=== PATIENT | female | born 1970 | race Caucasian/White ===

== ENCOUNTER 2017-08-30 07:12 | Emergency (ER) | payer OTHER ==
[2017-08-30] MEDS ORDERED: FAMOTIDINE 20 MG/50 ML IVPB 50 ML IVPB ONE ×2 (07:29→07:48)
[2017-08-30 07:30] VITALS: TEMP 97.6; BMI 24.2
[2017-08-30] MEDS ORDERED: MAG HYDROX/AL HYDROX/SIMETH 355 ML ORAL.SUSP PO ONE (07:31)
[2017-08-30] MEDS ORDERED: MAG HYDROX/AL HYDROX/SIMETH 30 ML UNIT-DOSE CUP ONE (07:47)
--- NOTE | 2017-08-30 07:47 | PDOC ---
Attending Attestation - Resident Resident Name: GerryArnulfo - ED Attending Attestation I have performed the following: I have examined & evaluated the patient, The case was reviewed & discussed with the resident, I agree w/resident's findings & plan, Exceptions are as noted - HPI HPI: 08/30/17 07:34 46yo F no hx BIBEMS with syncope. Reports lower abd discomfort similar to when she has to have bowel movement, nausea, and feeling of warmth. She went to the bathroom, had a bowel movement and slumped over on the toilet. Did not fall off the toilet, just leaned back. LOC for less than 1 minute. [place] very hot afterwards but returned to her baseline mental status quickly per her . says he helped her up from the toilet and they came to the ED. Patient also reports dysuria for 2 days. Denies any palpitations, chest pain, shortness of breath, headache, focal weakness or numbness, fevers, chills, dizziness. LMP 1 year ago. - Physicial Exam PE: 08/30/17 07:47 GENERAL: Awake, alert, and fully oriented, in no acute distress HEAD: No signs of trauma EYES: PERRLA, EOMI, sclera anicteric, conjunctiva clear ENT: Auricles normal inspection, hearing grossly normal, nares patent, oropharynx clear without exudates. Moist mucosa NECK: Normal ROM, supple, no lymphadenopathy, JVD, or masses LUNGS: Breath sounds equal, clear to auscultation bilaterally. No wheezes, and no crackles HEART: Regular rate and rhythm, normal S1 and S2, no murmurs, rubs or gallops ABDOMEN: Soft, mild suprapubic ttp, normoactive bowel sounds. No guarding, no rebound. No masses EXTREMITIES: Normal range of motion, no edema. No clubbing or cyanosis. No cords, erythema, or tenderness NEUROLOGICAL: Normal speech, cranial nerves intact, negative pronator drift, 5/ 5 strength in all 4 extremities, normal sensation to light touch in all 4 extremities, normal cerebellar exam, normal gait, normal reflexes and tone SKIN: Warm, Dry, normal turgor, no rashes or lesions noted. - Medical Decision Making 08/30/17 07:50 46-year-old female with no significant past medical history presents with syncopal episode. Also reports dysuria. Vitals and exam are unremarkable. EKG is normal. Given preceding warmth, and nausea, and LOC for less than 1 minute and normal EKG, likely vasovagal syncope, maybe in the setting of UTI or other infection. -labs -CXR -UA -reassess 08/30/17 11:14 UPT negative. Labs unremarkable, except slightly hypokalemic to 3.2 which was repleted PO (Mg normal). Calcium low to 7.7 which patient reports she has been told to take supplementation for before. UA c/f UTI. Will treat with keflex and DC to f/u with PMD. I discussed the physical exam findings, ancillary test results and final diagnoses with the patient. I answered all of the patient's questions. The patient was satisfied with the care received and felt comfortable with the discharge plan and treatment plan. The patient will call their primary care physician within 24 hours to arrange follow-up and will return to the Emergency Department with any new, persistent or worsening symptoms. Heart Score/ECG Review #1 08/30/17 07:50 Twelve-lead EKG was performed and reviewed by me. Normal sinus rhythm, rate 61. Normal axis and intervals. No ST elevations or T-wave inversions.
[2017-08-30] MEDS ORDERED: LOPERAMIDE HCL 2 MG CAPSULE PO ONE (07:55)
[2017-08-30 08:01] LABS: BASOPHIL 1.3 % (0-2.0); EOSINOPHIL 1.7 % (0-4.5); MCH 29.2 pg (25.7-33.7); MCHC 33.9 g/dl (32.0-36.0); MEAN PLT VOLUME 9.3 fl (7.5-11.1); NEUTROPHILS 67.4 % (42.8-82.8); PLATELET COUNT 174 K/MM3 (134-434); RDW 14.2 % (11.6-15.6); WHITE BLOOD COUNT 7.5 K/mm3 (4.0-10.0)
[2017-08-30] MEDS ORDERED: LOPERAMIDE HCL 2 MG CAPSULE ONE (08:20)
[2017-08-30 08:26] LABS: ALBUMIN 3.3 g/dl (3.4-5.0); ANION GAP 9 (8-16); BILIRUBIN,TOTAL 0.3 mg/dL (0.2-1.0); CALCIUM 7.7 mg/dL (8.5-10.1); CO2 26 mmol/L (21-32); CREATININE 0.9 mg/dL (0.55-1.02); SGOT/AST 17 U/L (15-37); SGPT/ALT 20 U/L (12-78); TOT PROT 6.1 g/dl (6.4-8.2)
[2017-08-30 08:27] LABS: ALK PHOS 72 U/L (45-117); CPK 128 IU/L (26-192); GLUCOSE,RANDOM 126 mg/dL (74-106); TROPONIN I < 0.02 ng/ml (0.00-0.05)
--- NOTE | 2017-08-30 08:43 | PDOC ---
History of Present Illness - General Chief Complaint: Syncope/Near Syncope Stated Complaint: SYNCOPE Time Seen by Provider: 08/30/17 07:29 History Source: Patient Exam Limitations: Language Barrier - History of Present Illness Initial Comments: 08/30/17 08:33 Patient is a 46F with no significant medical history here today complaining of syncope after having a bowel movement. She says that she woke up this morning with a strong sensation that she needed to defecate. She had a loose bowel movement without blood then starting feeling hot and weak. Her found her on the toilet upright but with her head held to the side. She is unsure of how long she was out, but says that she was not confused afterwards, only feeling weak. Her denies any sort of convulsions or seizure like activity. She denies chest pain, shortness of breath, and vomiting. She says that she does feel nauseous. EMS was called, and she was given 1L NS and 4mg of zofran in the field. On review of symptoms, she is complaining of burning with urination. LMP was 1 year ago, she believes she is menopausal. Past History - Past Medical History Allergies/Adverse Reactions: Allergies Allergy/AdvReac Type Severity Reaction Status Date / Time No Known Allergies Allergy Verified 08/30/17 07:19 Home Medications: Ambulatory Orders Calcium Carbonate [Calcium] 500 mg PO DAILY 08/30/17 Cephalexin [Keflex] 500 mg PO BID #13 capsule 08/30/17 Other medical history: ARTHRITIS. - Immunization History Immunization Up to Date: Yes - Suicide/Smoking/Psychosocial Hx Smoking Status: No Smoking History: Never smoked Have you smoked in the past 12 months: No Number of Cigarettes Smoked Daily: 0 Cigars Per Day: 0 Hx Alcohol Use: No Drug/Substance Use Hx: No Substance Use Type: None Review of Systems - Review of Systems Comments:: 08/30/17 08:42 GENERAL/CONSTITUTIONAL: Positive for fevers and weakness. Negative for chills HEAD, EYES, EARS, NOSE AND THROAT: No change in vision. No sore throat. CARDIOVASCULAR: No chest pain or shortness of breath RESPIRATORY: No cough, wheezing, or hemoptysis. GASTROINTESTINAL: Positive for nausea and diarrhea. Negative for constipation and vomting. GENITOURINARY: Positive for burning sensation with urination. Negative for frequency. MUSCULOSKELETAL: No joint or muscle swelling or pain. No neck or back pain. SKIN: No rash NEUROLOGIC: No headache, vertigo, loss of consciousness, or change in strength/ sensation. ENDOCRINE: No increased thirst. No abnormal weight change HEMATOLOGIC/LYMPHATIC: No anemia, easy bleeding, or history of blood clots. ALLERGIC/IMMUNOLOGIC: No hives or skin allergy. *Physical Exam - Vital Signs Last Vital Signs Temp Pulse Resp BP Pulse Ox 97.6 F 60 18 119/72 98 08/30/17 07:26 08/30/17 07:26 08/30/17 07:26 08/30/17 07:26 08/30/17 07:26 - Physical Exam Comments: 08/30/17 08:45 GENERAL: Awake, alert, and fully oriented, in no acute distress HEAD: No signs of trauma, normocephalic, atraumatic EYES: PERRLA, EOMI, sclera anicteric, conjunctiva clear ENT: Auricles normal inspection, hearing grossly normal, nares patent, oropharynx clear without exudates. Moist mucosa LUNGS: No distress, speaks full sentences, clear to auscultation bilaterally HEART: Regular rate and rhythm, normal S1 and S2, no murmurs, rubs or gallops, peripheral pulses normal and equal bilaterally. ABDOMEN: Soft, nontender, normoactive bowel sounds. No guarding, no rebound. No masses EXTREMITIES: Normal inspection, Normal range of motion, no edema. No clubbing or cyanosis. NEUROLOGICAL: Cranial nerves II through XII grossly intact. Normal speech, no focal sensorimotor deficits SKIN: Warm, Dry, normal turgor, no rashes or lesions noted. ED Treatment Course - LABORATORY CBC & Chemistry Diagram: 08/30/17 07:42 08/30/17 07:42 - ADDITIONAL ORDERS Additional order review: Laboratory Results 08/30/17 08/30/17 07:42 07:42 Sodium 144 Potassium 3.2 L Chloride 109 H Carbon Dioxide 26 Anion Gap 9 BUN 16 D Creatinine 0.9 Creat Clearance w eGFR > 60 Random Glucose 126 H D Calcium 7.7 L Total Bilirubin 0.3 AST 17 D ALT 20 Alkaline Phosphatase 72 Creatine Kinase 128 Troponin I < 0.02 Total Protein 6.1 L Albumin 3.3 L Lipase 190 08/30/17 07:42 RBC 3.98 MCV 86.0 MCHC 33.9 RDW 14.2 MPV 9.3 Neutrophils % 67.4 Lymphocytes % 21.8 Monocytes % 7.8 Eosinophils % 1.7 Basophils % 1.3 - RADIOLOGY Radiology Studies Ordered: Category Date Time Status CXRPORT [CHEST X-RAY PORTABLE*] [RAD] Stat Radiology 08/30/17 07:41 Ordered - Medications Given in the ED: ED Medications Discontinued Medications Generic Name Dose Route Start Last Admin Trade Name Freq PRN Reason Stop Dose Admin Al Hydroxide/Mg Hydroxide 30 ml 08/30/17 07:31 08/30/17 07:50 Mylanta Suspension - PO 08/30/17 07:32 30 ml ONCE ONE Administration Famotidine/Sodium Chloride 50 mls @ 100 mls/hr 08/30/17 07:29 08/30/17 07:48 Pepcid 20 Mg Premixed Ivpb - IVPB 08/30/17 07:58 100 mls/hr ONCE ONE Administration Loperamide HCl 4 mg 08/30/17 07:55 08/30/17 08:25 Imodium - PO 08/30/17 07:56 4 mg ONCE ONE Administration Medical Decision Making - Medical Decision Making 08/30/17 08:46 46F here today with syncope after an episode of diarrhea. Vital signs normal and stable. Patient is nontender on exam. Differential diagnosis includes, but is not limited to: vasovagal syncope, acs, arrhythmia. Will do abdominal labs with heart workup. EKG shows normal sinus rhythm, normal rate, normal axis, no st elevations/ depressions. 08/30/17 09:20 Laboratory Tests 08/30/17 08/30/17 08/30/17 07:42 07:42 07:42 WBC 7.5 Hgb 11.6 D Hct 34.2 Plt Count 174 INR 0.96 BUN Creatinine Troponin I < 0.02 Lipase 08/30/17 07:42 WBC Hgb Hct Plt Count INR BUN 16 D Creatinine 0.9 Troponin I Lipase 190 CBC normal, INR normal, trop and lipase neg, cmp shows hypokalemia of 3.2. Mag added. CXR, UA and Upreg pending. 08/30/17 10:28 Laboratory Tests 08/30/17 08:38 Urine HCG, Qual Negative UA neg, upreg neg. CXR pending. Mag normal. Given 40meq KCl PO. 08/30/17 10:50 CXR shows no acute cardiopulmonary process. Will discharge home with PCP follow up. Return precautions given. Patient is improved, alert, and ambulatory. 08/30/17 11:19 UA updated by lab, shows WBC of 32. Given keflex 500mg PO in the ED, sent home with prescription. *DC/Admit/Observation/Transfer Diagnosis at time of Disposition: Syncope, Urinary tract infection - Discharge Dispostion Disposition: HOME Condition at time of disposition: Good Admit: No - Prescriptions Prescriptions: Cephalexin [Keflex] 500 mg PO BID #13 capsule - Referrals Referrals: Emelina Quigley [Primary Care Provider] - - Patient Instructions Printed Discharge Instructions: DI for Syncope in Adults (Fainting), DI for Urinary Tract Infection (UTI) Additional Instructions: Please see your primary care doctor in 1-2 days. Take your antibiotics and calcium supplementation as prescribed. Return to the emergency department immediately for any new or concerning symptoms or if your symptoms get worse. Thank you for coming to the Emergency Department today for your care. It was a pleasure to see you today. Please note that your evaluation is INCOMPLETE until you follow-up with your doctor. Print Language: STATELESS
[2017-08-30 08:56] LABS: INR 0.96 (0.82-1.09); PROTHROMBIN TIME (PATIENT) 10.6 SEC (9.98-11.88)
[2017-08-30 09:43] LABS: MAGNESIUM 2.3 mg/dL (1.8-2.4)
[2017-08-30 09:48] LABS: URINE APPEARANCE SLCLOUDY; URINE BILIRUBIN NEGATIVE (NEGATIVE); URINE BLOOD 1+ (NEGATIVE); URINE COLOR LTYELLOW; URINE GLUCOSE (UA) NEGATIVE (NEGATIVE); URINE KETONE NEGATIVE (NEGATIVE); URINE NITRITE NEGATIVE (NEGATIVE); URINE PROTEIN NEGATIVE (NEGATIVE); URINE UROBILINOGEN NEGATIVE mg/dL (0.2-1.0)
[2017-08-30] MEDS ORDERED: POTASSIUM CHLORIDE TABS 20 MEQ TABLET.ER (FP) PO ONE ×2 (10:17→10:29)
[2017-08-30 11:03] LABS: URINE MUCUS RARE; URINE RBC 2 /hpf (0-3); URINE WBC 32 /hpf (3-5)
[2017-08-30] MEDS ORDERED: CEPHALEXIN MONOHYDRATE 500 MG CAPSULE (UD) PO ONE (11:17)
[2017-08-30] MEDS ORDERED: CEPHALEXIN MONOHYDRATE 250 MG CAPSULE (FP) ONE (11:31)
[2017-08-30 11:44] VITALS: BP 122/72; PULSE 66
[2017-08-30 14:47] LABS: URINE LEUK ESTERASE 3+ (NEGATIVE)
[2017-08-30 15:01] LABS: URINE BACTERIA FEW /hpf (NEGATIVE); URINE RBC 0-3 /hpf (0-3)
--- NOTE | 2017-08-30 15:39 | EKG ---
Test Reason : Blood Pressure : / mmHG Vent. Rate : 061 BPM Atrial Rate : 061 BPM P-R Int : 180 ms QRS Dur : 088 ms QT Int : 438 ms P-R-T Axes : 067 063 065 degrees QTc Int : 440 ms NORMAL SINUS RHYTHM POSSIBLE LEFT ATRIAL ENLARGEMENT EARLY REPOLARIZATION PATTERN BORDERLINE ECG WHEN COMPARED WITH ECG OF 02-DEC-2015 12:14, NO SIGNIFICANT CHANGE WAS FOUND CLINICAL CORRELATION IS RECOMMENDED Confirmed by TRACI RAI MD ([id number]) on 08/30/2017 3:38:58 PM Referred By: Confirmed By:TRACI RAI MD
== END 2017-08-30 11:44 | disposition home or self-care (01) ==
LOC: JER 07:12
PROC: 3E033GC Introduction of Other Therapeutic Substance into Peripheral Vein, Percutaneous Approach (ICD-10-PCS; principal; 2017-08-30)
DX: R55 Syncope and collapse (principal); N39.0 Urinary tract infection, site not specified
CPT/HCPCS: 36415; 71010-TC; 80053; 81003; 81015; 83690; 83735; 84484; 84703; 85025; 85610; 93005; 93010; 99285-25

== ENCOUNTER 2018-12-19 11:24 | Emergency (ER) | payer SELFPAY ==
[2018-12-19 11:34] VITALS: BMI 24.0
--- NOTE | 2018-12-19 12:19 | PDOC ---
Attending Attestation - Resident Resident Name: Raul Tamayo - ED Attending Attestation I have performed the following: I have examined & evaluated the patient, The case was reviewed & discussed with the resident, I agree w/resident's findings & plan, Exceptions are as noted - HPI HPI: 12/19/18 12:52 The patient is a 48 year old female with a significant past medical history of gallstones, asthma, osteopenia/osteoporosis, who presents to the ED complaining of a burning epigastric pain rthat began two weeks ago. The patient notes the pain is intermittent, but is exacerbated when eating, and is worse at night. The patient states the pain has only worsened over the course of the two weeks and is to a point where she is unable to sleep. The patient notes a sour taste in her throat and associated nausea. She denies pain elsewhere, despite previous report to staff that she has LUQ +/- suprapubic pain. The patient denies SOB, chest pain, headache and dizziness. Denies fever, vomit, diarrhea and constipation. Denies dysuria, frequency, urgency and hematuria. Allergies: NKA - Physicial Exam PE: 12/19/18 12:39 GENERAL: Awake, alert, and fully oriented, in no acute distress EYES: PERRLA, EOMI, sclera anicteric, conjunctiva clear ENT: Oropharynx clear without exudates. Moist mucosa LUNGS: Breath sounds equal, clear to auscultation bilaterally. No wheezes, and no crackles HEART: Regular rate and rhythm, normal S1 and S2, no murmurs, rubs or gallops ABDOMEN: Soft, +mild epigastric ttp, non tender in lower abdomen, neg murphys sign, normoactive bowel sounds. No guarding, no rebound. No masses : No CVAT EXTREMITIES: Normal range of motion, no edema. No clubbing or cyanosis. No cords, erythema, or tenderness NEUROLOGICAL: Normal speech, cranial nerves intact, negative pronator drift, equal strength and sensation b/l SKIN: Warm, Dry, normal turgor, no rashes or lesions noted. - Medical Decision Making 12/19/18 12:47 48yo F hx gallstones, GERD, and asthma presents to the ED with 2 weeks epigastric abd pain and 1 year of LUQ pain. Vitals unremarkable. Exam with epigastric ttp, otherwise unremarkable. DDx includes but not limited to gastritis vs GERD vs pancreatitis vs cholecystitis. Plan: -labs -UA -UPT -RUQ US -sxs control -reassess 12/19/18 14:29 Labs unremarkable US with gallbladder polyps, no acute findings Pt feeling much better with meds/fluids Tolerating PO Liekly GERD/gastritis. Pt states she ran out of her omeprazole, will provide script for 7 day supply Pt to f/u PMD Dr. Harrington and GI Dr. Barrera within 1 week Return precautions communicated Pt well appearing, clinically stable for DC home I discussed the physical exam findings, ancillary test results and final diagnoses with the patient. I answered all of the patient's questions. The patient was satisfied with the care received and felt comfortable with the discharge plan and treatment plan. The patient will call their primary care physician within 24 hours to arrange follow-up and will return to the Emergency Department with any new, persistent or worsening symptoms. *DC/Admit/Observation/Transfer Diagnosis at time of Disposition: Epigastric pain, Nausea, Gastritis - Discharge Dispostion Disposition: HOME Condition at time of disposition: Stable - Prescriptions Prescriptions: Omeprazole 20 mg PO DAILY #7 tablet.dr - Referrals Referrals: Ubaldo Barrera MD [Staff Physician] - Tamara Harrington MD [Primary Care Provider] - - Patient Instructions Printed Discharge Instructions: DI for Abdominal Pain-Adult Additional Instructions: Follow up with Dr. Harrington within 1 week. Follow up with Dr. Barrera within 2 weeks. Return to the emergency department if you have any new, worsening, or concerning symptoms. Print Language: [place] CITIZEN - Post Discharge Activity - Attestations Physician Attestion: 12/19/18 14:37 I, Dr. Marie Hurley MD, attest that this document has been prepared under my direction and personally reviewed by me in its entirety. I further attest, that it accurately reflects all work, treatment, procedures and medical decision -making performed by me. Heart Score/ECG Review #1 12/19/18 14:31 Twelve-lead EKG was performed and reviewed by me. Sinus bradycardia, rate 47. Normal axis and intervals. No ST elevations or T-wave inversions.
[2018-12-19] MEDS ORDERED: ONDANSETRON 4 MG TABLET PO ONE (12:23)
[2018-12-19] MEDS ORDERED: PANTOPRAZOLE 40 MG TABLET (FP) PO ONE (12:23)
--- NOTE | 2018-12-19 12:34 | PDOC ---
History of Present Illness - General Chief Complaint: Pain, Acute Stated Complaint: ABD/LEFT SIDE PAIN Time Seen by Provider: 12/19/18 11:45 History Source: Patient, Friend Exam Limitations: Language Barrier (translation by friend at bedside) - History of Present Illness Initial Comments: Patient is a 48 y/o F w/ PMHx asthma, gallstones, recently diagnosed osteopenia/ osteoporosis, p/w epigastric pain x 2 weeks with radiation to suprapubic region. Pain is burning in quality, intermittent, exacerbated by eating, worse at night, and has progressively worsened to the point where she was unable to sleep last night, prompting ED visit. Accompanied by sour taste in her throat, lightheadedness, chills, nausea, and shortness of breath. Concomitantly c/o "pressure"-like left-sided back pain x 3 months. Unsure of any change in weight. Denies CP, fever, vomiting, diarrhea, dysuria. Pt is 2 years post- menopausal. 12/19/18 12:28 Past History - Travel Traveled outside of the country in the last 30 days: No Close contact w/someone who was outside of country & ill: No - Past Medical History Allergies/Adverse Reactions: Allergies Allergy/AdvReac Type Severity Reaction Status Date / Time No Known Allergies Allergy Verified 08/30/17 07:19 Home Medications: Ambulatory Orders Calcium Carbonate [Calcium] 500 mg PO DAILY 08/30/17 Cholecalciferol (Vitamin D3) [Vitamin D -] 2,000 units PO DAILY 12/19/18 Omeprazole 20 mg PO DAILY #7 tablet. 12/19/18 COPD: No Diabetes: Yes (PRE-DIABETES) GI Disorders: Yes (GASTRITIS) - Surgical History Cardiac Surgery: No GI Surgery: No Neurologic Surgery: No - Immunization History Immunization Up to Date: Yes - Suicide/Smoking/Psychosocial Hx Smoking Status: No Smoking History: Never smoked Have you smoked in the past 12 months: No Number of Cigarettes Smoked Daily: 0 Cigars Per Day: 0 Information on smoking cessation initiated: No Hx Alcohol Use: No Drug/Substance Use Hx: No Substance Use Type: None Review of Systems - Review of Systems Comments:: As per HPI. Has tendency to coronado-positive ROS. 12/19/18 12:34 *Physical Exam - Vital Signs Last Vital Signs Temp Pulse Resp BP Pulse Ox 97.4 F L 58 L 18 121/71 100 01/27/19 11:28 12/19/18 11:28 12/19/18 11:28 12/19/18 11:28 12/19/18 11:28 - Physical Exam Comments: Gen: A&Ox3, NAD HEENT: NC/AT, EOMI, PERRLA, MMM, no exudates Neck: supple, non-tender, no LAD, no JVD CV: RRR no m/r/g Resp: CTA b/l Abd: +bs, soft, +epigastric and umbilical tenderness, non-distended, no masses, no organomegaly MSK: reproducible tenderness of L lumbar region, no focal spinal pain, no CVA tenderness, negative leg raise b/l Ext: 2+ pulses, wwp Neuro: oncology rep, motor, sensory systems w/o focal deficit Psych: anxious Skin: warm, dry, normal turgor 12/19/18 12:35 Moderate Sedation - Procedure Monitoring Vital Signs: Procedure Monitoring Vital Signs Temperature 97.4 F L 12/19/18 11:28 Pulse Rate 58 L 12/19/18 11:28 Respiratory Rate 18 12/19/18 11:28 Blood Pressure 121/71 12/19/18 11:28 O2 Sat by Pulse Oximetry (%) 100 12/19/18 11:28 ED Treatment Course - RADIOLOGY Radiology Studies Ordered: Category Date Time Status CHEST PA & LAT [RAD] Stat Radiology 12/19/18 12:23 Ordered ABDOMEN US [US] Stat Ultrasound 12/19/18 12:23 Ordered Medical Decision Making - Medical Decision Making DDx is broad including GERD, gastric ulcer, gallstones, pancreatitis, atypical ACS; back pain is most likely unrelated paraspinal muscle strain. However, given concomitant progressive subacute epigastric pain and back pain that is worse at night, pancreatic malignancy cannot be excluded. Ordered CBC, CMP, Mg, Phos, lipase, trop, EKG, CXR, RUQ US, UA, UCx, urine hCG. Treating empirically with Protonix and Zofran. 12/19/18 12:39 RUQ US finds 3mm gallbladder polyps, no stones, no pericholecystic fluid or wall thickening noted. 12/19/18 13:11 CBC, CMP, lipase, UA unremarkable. 12/19/18 14:08 No acute pathology on CXR. 12/19/18 14:09 EKG benign. Will discharge w/ instructions for f/u. 12/19/18 14:36 *DC/Admit/Observation/Transfer Diagnosis at time of Disposition: GERD (gastroesophageal reflux disease) Qualifiers: Esophagitis presence: without esophagitis Qualified Code(s): K21.9 - Gastro- esophageal reflux disease without esophagitis - Discharge Dispostion Disposition: HOME Condition at time of disposition: Stable - Referrals Referrals: Tamara Harrington MD [Primary Care Provider] - - Patient Instructions - Post Discharge Activity
[2018-12-19] MEDS ORDERED: ONDANSETRON *ODT* 4 MG TABLET ONE (13:09)
[2018-12-19] MEDS ORDERED: PANTOPRAZOLE 40 MG TABLET (FP) ONE (13:09)
[2018-12-19 13:27] LABS: BASO % 1.4 % (0-2.0); EOS % 1.2 % (0-4.5); HEMATOCRIT 35.2 % (32.4-45.2); HEMOGLOBIN 12.3 GM/dL (10.7-15.3); LYMPH % 26.5 % (8-40); MCH 29.5 pg (25.7-33.7); MCHC 34.9 g/dl (32.0-36.0); MEAN CELL VOLUME 84.5 fl (80-96); MEAN PLT VOLUME 8.9 fl (7.5-11.1); MONO % 6.1 % (3.8-10.2); NEUT % 64.8 % (42.8-82.8); PLATELET COUNT 199 K/MM3 (134-434); RBC 4.17 M/mm3 (3.60-5.2); RDW 13.5 % (11.6-15.6); WHITE BLOOD COUNT 5.2 K/mm3 (4.0-10.0)
[2018-12-19 13:40] LABS: HCG,QUALITATIVE URINE Negative
[2018-12-19 13:45] LABS: URINE APPEARANCE CLEAR; URINE BILIRUBIN NEGATIVE (<2.0 mg/dL); URINE COLOR YELLOW; URINE GLUCOSE (UA) NEGATIVE (NEGATIVE); URINE KETONE NEGATIVE (NEGATIVE); URINE LEUK ESTERASE NEGATIVE (NEGATIVE); URINE NITRITE NEGATIVE (NEGATIVE); URINE PROTEIN NEGATIVE (NEGATIVE); URINE UROBILINOGEN NEGATIVE mg/dL (0.2-1.0)
[2018-12-19 13:52] LABS: EPI CELLS RARE /HPF (FEW); URINE MUCUS RARE
[2018-12-19 13:54] LABS: ALBUMIN 3.8 g/dl (3.4-5.0); ALK PHOS 76 U/L (45-117); ANION GAP 5 MMOL/L (8-16); BILIRUBIN,TOTAL 0.5 mg/dL (0.2-1); BLOOD UREA NITROGEN 11 mg/dL (7-18); CALCIUM 8.5 mg/dL (8.5-10.1); CHLORIDE 110 mmol/L (98-107); CO2 26 mmol/L (21-32); CREATININE 0.7 mg/dL (0.55-1.3); GLUCOSE,RANDOM 80 mg/dL (74-106); LIPASE 175 U/L (73-393); MAGNESIUM 2.3 mg/dL (1.8-2.4); PHOSPHOROUS 3.4 mg/dL (2.5-4.9); POTASSIUM 3.7 mmol/L (3.5-5.1); SGOT/AST 14 U/L (15-37); SGPT/ALT 18 U/L (13-61); SODIUM 141 mmol/L (136-145); TOT PROT 6.8 g/dl (6.4-8.2)
[2018-12-19 15:05] VITALS: BP 125/72; PULSE 59; TEMP 98.2
--- NOTE | 2018-12-20 10:57 | EKG ---
Test Reason : Blood Pressure : / mmHG Vent. Rate : 047 BPM Atrial Rate : 047 BPM P-R Int : 164 ms QRS Dur : 086 ms QT Int : 472 ms P-R-T Axes : 045 045 049 degrees QTc Int : 417 ms SINUS BRADYCARDIA OTHERWISE NORMAL ECG WHEN COMPARED WITH ECG OF 30-AUG-2017 07:19, NO SIGNIFICANT CHANGE WAS FOUND Confirmed by MAYRA NGUYEN MD ([id number]) on 12/20/2018 10:57:29 AM Referred By: Confirmed By:MAYRA NGUYEN MD
== END 2018-12-19 15:05 | disposition home or self-care (01) ==
LOC: JER 11:24
DX: K21.9 Gastro-esophageal reflux disease without esophagitis (principal); M19.90 Unspecified osteoarthritis, unspecified site; M85.80 Other specified disorders of bone density and structure, unspecified site; J45.909 Unspecified asthma, uncomplicated; R73.03 Prediabetes; Z87.19 Personal history of other diseases of the digestive system
CPT/HCPCS: 36415; 71046-TC-FY; 76705-TC; 80053; 81003; 81015; 82550; 83690; 83735; 84100; 84484; 84703; 85025; 87086; 93005; 93010; 99283-25

== ENCOUNTER 2019-04-01 19:22 | Emergency (ER) | payer OTHER ==
[2019-04-01] MEDS ORDERED: IBUPROFEN 400 MG TABLET (FP) PO ONE ×2 (19:31→20:04)
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
[2019-04-01 20:05] VITALS: BP 113/73; PULSE 18; TEMP 98; BMI 30.6
[2019-04-01] MEDS ORDERED: LIDOCAINE 5% TOPICAL PATCH TP ONE (20:24)
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
[2019-04-01] MEDS ORDERED: LIDOCAINE 5% TOPICAL PATCH ONE (20:42)
[2019-04-01] MEDS ORDERED: LIDOCAINE PATCH REMOVAL MC SCH (22:00)
== END 2019-04-01 21:00 | disposition home or self-care (01) ==
LOC: JERFT 19:22
DX: M54.5 Low back pain (principal); M62.830 Muscle spasm of back; V49.69XA Unspecified car occupant injured in collision with other motor vehicles in traffic accident, initial encounter; Y92.488 Other paved roadways as the place of occurrence of the external cause; Y93.89 Activity, other specified; Y99.8 Other external cause status
CPT/HCPCS: 99281-25

== ENCOUNTER 2021-07-31 12:51 | Emergency (ER) | payer OTHER ==
[2021-07-31 13:13] VITALS: BP 135/80; PULSE 69; TEMP 98.2; BMI 25.7
[2021-07-31] MEDS ORDERED: ACETAMINOPHEN 1000 MG/100 ML VIAL (NON FORMULARY) IVPB ONE (13:51)
[2021-07-31] MEDS ORDERED: TETANUS AND DIPHTHERIA TOXOID 0.5 ML DISP.SYRIN IM ONE (14:09)
[2021-07-31] MEDS ORDERED: ACETAMINOPHEN INJECTION 100 ML IVPB ONE (15:49)
[2021-07-31] MEDS ORDERED: KETOROLAC TROMETHAMINE 30 MG/1 ML VIAL IM ONE (16:07)
[2021-07-31] MEDS ORDERED: DIPHTH,PERTUSS(ACELL),TET 0.5 ML DISP.SYRIN IM ONE (16:08)
[2021-07-31] MEDS ORDERED: KETOROLAC TROMETHAMINE 30 MG/1 ML VIAL ONE (16:08)
== END 2021-07-31 17:19 | disposition home or self-care (01) ==
LOC: JER 12:51
PROC: 3E0233Z Introduction of Anti-inflammatory into Muscle, Percutaneous Approach (ICD-10-PCS; principal; 2021-07-31)
PROC: 3E0234Z Introduction of Serum, Toxoid and Vaccine into Muscle, Percutaneous Approach (ICD-10-PCS; 2021-07-31)
DX: M25.572 Pain in left ankle and joints of left foot (principal); M25.561 Pain in right knee; M25.562 Pain in left knee; W10.8XXA Fall (on) (from) other stairs and steps, initial encounter
CPT/HCPCS: 73502-TC-LT-FY; 73560-TC-LT-FY; 73560-TC-RT-FY; 73610-TC-LT-FY; 73610-TC-RT-FY; 73630-TC-LT; 73630-TC-RT-FY; 99285-25